=== PATIENT | female | born 1980 | race Caucasian/White ===

== ENCOUNTER 2021-12-20 08:01 | Day surgery (SDC) | payer OTHER ==
[2021-12-18 13:54] VITALS: BMI 29.7
[2021-12-20] MEDS ORDERED: Lidocaine 1% MPF 2 ML VIAL ONE (08:36)
[2021-12-20] MEDS ORDERED: Oxymetazoline HCl 0.05% (30 ML BOT) ONE ×2 (08:37→09:42)
[2021-12-20] MEDS ORDERED: Lidocaine 1% w/Epinephrine 1:100K 20 ML VIAL ONE (09:13)
[2021-12-20 09:28] LABS: Hemoglobin 13.4 g/dL (12.0-16.0)
[2021-12-20] MEDS ORDERED: Bacitracin Zinc Ointment 30 gm TUBE ONE (09:42)
[2021-12-20] MEDS ORDERED: fentaNYL Citrate/PF 100 MCG/2 ML SYRINGE ONE (09:43)
[2021-12-20] MEDS ORDERED: EPINEPHrine 1 MG/ML AMP ONE (09:45)
[2021-12-20] MEDS ORDERED: Lidocaine 1% (PF) 30 ML VIAL ONE (09:45)
[2021-12-20] MEDS ORDERED: Dexamethasone 20 MG/5 ML VIAL ONE (10:27)
[2021-12-20] MEDS ORDERED: Ondansetron PF 4 MG/2 ML Vial ONE (10:27)
[2021-12-20] MEDS ORDERED: Lidocaine 1% PF 5 ML VIAL ONE (10:27)
[2021-12-20] MEDS ORDERED: Fentanyl 100 MCG/2 ML VIAL ONE (11:43)
[2021-12-20] MEDS ORDERED: Hydrocodone-Acetamin 15 ML UDCUP ONE (12:41)
[2021-12-20] MEDS ORDERED: traMADol HCl 50 MG TAB ONE (13:32)
== END 2021-12-20 13:38 | disposition home or self-care (01) ==
LOC: SDC 08:01
PROVIDERS: ATTEND Specialist
PROC: 09BR8ZZ Excision of Left Maxillary Sinus, Via Natural or Artificial Opening Endoscopic (ICD-10-PCS; principal; 2021-12-20)
PROC: 09BQ8ZZ Excision of Right Maxillary Sinus, Via Natural or Artificial Opening Endoscopic (ICD-10-PCS; principal; 2021-12-20)
PROC: 09SM0ZZ Reposition Nasal Septum, Open Approach (ICD-10-PCS; principal; 2021-12-20)
PROC: 09SL8ZZ Reposition Nasal Turbinate, Via Natural or Artificial Opening Endoscopic (ICD-10-PCS; principal; 2021-12-20)
DX: J32.0 Chronic maxillary sinusitis (principal); J34.2 Deviated nasal septum; J34.3 Hypertrophy of nasal turbinates; J33.9 Nasal polyp, unspecified; J35.1 Hypertrophy of tonsils; K21.9 Gastro-esophageal reflux disease without esophagitis; M19.90 Unspecified osteoarthritis, unspecified site; F17.210 Nicotine dependence, cigarettes, uncomplicated; Z79.899 Other long term (current) drug therapy
CPT/HCPCS: 36415; 85014; 85018; 93005; 93010; J0171; J1100; J2001; J2405; J3010